=== PATIENT | male | born 1960 | race Caucasian/White ===

== ENCOUNTER 2017-08-11 08:03 | Day surgery (SDC) | payer BC ==
[~2017-08-11 08:03] MED LIST: Acetaminophen TAB* 325 MG PO PRN; Buffered Lidocaine 0.9% SYRIN* 5 ML/SYR SYRINGE INTRADERM ONE
[2017-08-11] MEDS ORDERED: Midazolam* 1 MG/ML 5 ML VIAL (5 MG) ONE (08:17)
[2017-08-11] MEDS ORDERED: fentaNYL* 50 MCG/ML 2 ML VIAL (100 MCG VIAL) ONE (08:17)
--- NOTE | 2017-08-11 11:30 | OP ---
DATE OF OPERATION/DATE OF DICTATION: 08/11/2017 - [facility] DATE OF : 1960. SURGEON: Dr. Jean-Claude Guadarrama. FIELD SERVICES DIRECTOR: None. ANESTHESIOLOGIST: Gadiel Cameron MD ANESTHESIA: Topical with intravenous sedation. PRE-OP DIAGNOSIS: Cataract, left eye. POST-OP DIAGNOSIS: Cataract, left eye. OPERATIVE PROCEDURE: Phacoemulsification and cataract extraction with posterior chamber intraocular lens implant, left eye. COMPLICATIONS: None. BLOOD LOSS: None. DESCRIPTION OF PROCEDURE: The patient was brought to the operating room and received a small amount of intravenous sedation. A drop of Tetracaine was placed in his left eye. He was prepped and draped in the usual sterile fashion for ophthalmic surgery and attention was directed to the left eye where a speculum was placed. A paracentesis was created at the 5 o'clock position and 0.1 cc of 1 percent preservative-free Lidocaine was injected into the anterior chamber followed by DisCoVisc. The eye was digitally stabilized while a 2.75 mm keratome was used to create a triplanar clear corneal incision at the 3 o'clock position. A continuous curvilinear capsulorrhexis was created with a cystotome and Utrata forceps. BSS on a cannula was used to hydrodissect the lens from the capsule. Phacoemulsification was performed in a uhatsq-tcu-hiexhkh technique to create four fragments which were removed. Residual cortical material was removed with irrigation and aspiration. DisCoVisc was used to inflate the capsular bag and an AUOOTO 20.0 diopter lens was folded and inserted into the capsular bag. DisCoVisc was removed using irrigation and aspiration. BSS on a cannula was used to hydrate the corneal stroma and seal the wound. At the end of the case the pupil was round and the lens was centered. The eye was of normal pressure and the wound was water tight. The speculum was removed and topical Maxitrol ointment was placed on the surface of the eye. The eye was closed, patched and shielded and the patient was sent to the recovery room in stable condition with post operative instructions and follow-up appointment given. [id number]/CPS #: [id number] MTDD
[2017-08-11 11:57] VITALS: BP 122/75
[2017-08-11] MEDS ORDERED: Neomycin/Polymy/Dex OPHTH.OIN* 3.5 GM ONE (14:13)
[2017-08-11] MEDS ORDERED: Cyclopentolate 1% OPTH.SOL* 2 ML BTL ONE (14:13)
[2017-08-11] MEDS ORDERED: Tetracaine 0.5% OPTH.SOL 4 ML* 1 DROP BTL ONE (14:13)
[2017-08-11] MEDS ORDERED: Lidocaine 1% MPF* 2 ML VIAL ONE (14:13)
[2017-08-11] MEDS ORDERED: Phenylephrine 2.5% OPTH.SOL* 2 ML BTL ONE (14:13)
[2017-08-11] MEDS ORDERED: Tropicamide 1% OPTH.SOL* BTL ONE (14:13)
[2017-08-11] MEDS ORDERED: Buffered Lidocaine 0.9% SYRIN* 5 ML/SYR SYRINGE ONE (14:14)
[2017-08-11] MEDS ORDERED: Ketorolac 0.5% OPHTH (NF) 0.5 % 5 ML BTL ONE (14:15)
== END 2017-08-11 11:31 | disposition home or self-care (01) ==
LOC: OREAST 08:03
PROVIDERS: ATTEND Ophthalmology
DX: E11.36 Type 2 diabetes mellitus with diabetic cataract (principal); H25.12 Age-related nuclear cataract, left eye; H25.042 Posterior subcapsular polar age-related cataract, left eye; I10 Essential (primary) hypertension; F17.210 Nicotine dependence, cigarettes, uncomplicated; E11.42 Type 2 diabetes mellitus with diabetic polyneuropathy; E11.29 Type 2 diabetes mellitus with other diabetic kidney complication; Z79.84 Long term (current) use of oral hypoglycemic drugs
CPT/HCPCS: A9270-GY; J2250; J3010

== ENCOUNTER 2019-02-25 12:18 | Emergency (ER) | payer BC ==
[2019-02-25 12:59] VITALS: BP 153/90
[2019-02-25] MEDS ORDERED: Tetracaine 0.5% OPTH.SOL 4 ML* 1 DROP BTL LEFT EYE ONE (13:17)
[2019-02-25] MEDS ORDERED: Fluorescein Sodium TOPICAL* 1 MG TEST STRIP OPHTHALMIC ONE (13:17)
[2019-02-25] MEDS ORDERED: Erythromycin OPTH OINT* APPLIC OINT LEFT EYE ONE (13:34)
--- NOTE | 2019-02-25 13:44 | UC ---
Eye Complaint HPI - HPI Summary HPI Summary: 58-year-old male presents with complaints of left eye redness, tearing, and foreign body sensation for the past 2 days. States 2 days ago he was using a wire brush to clean rust off of the wheels of his truck. He was wearing safety goggles. States approximately 2 hours later he started noticing some irritation in the eye and foreign body sensation. The next morning he woke up and had some crusting of the eye. He has had redness and tearing of the eye since that time with continued foreign body sensation. Denies fever, chills, URI symptoms, visual disturbances, or photophobia. - History of Current Complaint Chief Complaint: UCEye Stated Complaint: LEFT EYE CONCERN Time Seen by Provider: 02/25/19 13:16 Hx Obtained From: Patient Pain Intensity: 0 Eyes: 1 - Left eye 2 - Linear corneal abrasion - Allergies/Home Medications Allergies/Adverse Reactions: Allergies Allergy/AdvReac Type Severity Reaction Status Date / Time No Known Allergies Allergy Verified 02/25/19 13:00 Home Medications: Home Medications Pioglitazone TAB* [Actos TAB*] 15 mg PO DAILY 02/25/19 [History Confirmed ] PMH/Surg Hx/FS Hx/Imm Hx Previously Healthy: Yes Endocrine History: Diabetes, Dyslipidemia Cardiovascular History: Hypertension - Surgical History Surgical History: None - Family History Known Family History: Positive: Non-Contributory - Social History Occupation: Employed Full-time Lives: With Family Alcohol Use: Occasionally Substance Use Type: Marijuana Substance Use Comment - Amount & Last Used: medical marijuana tincture- vapes Smoking Status (MU): Light Every Day Tobacco Smoker Type: Cigarettes Amount Used/How Often: 1/2 ppd Length of Time of Smoking/Using Tobacco: since age 13 Have You Smoked in the Last Year: Yes Review of Systems All Other Systems Reviewed And Are Negative: Yes Constitutional: Negative: Fever, Chills Eyes: Positive: Drainage - Tearing, Eye Redness. Negative: Blurred Vision, Diplopia, Photophobia ENT: Positive: Negative Respiratory: Positive: Negative Cardiovascular: Positive: Negative Gastrointestinal: Positive: Negative Genitourinary: Positive: Negative Musculoskeletal: Positive: Negative Neurological: Positive: Negative Is Patient Immunocompromised?: No Physical Exam - Summary Physical Exam Summary: GENERAL APPEARANCE: Well developed, well nourished, alert and cooperative, and appears to be in no acute distress. EYES: Right eye normal. Left eye conjuctival erythema with tearing. PERRL, EOM intact. Vision is grossly intact. Visual acuity reviewed. Tetracaine and fluorosceine instilled into left eye and the eye was examined under magnification with a Wood's lamp. A linear abrasion was noted (see diagram). No foreign body or penetrating injury noted. Upper and lower lids were everted during exam. EARS: External auditory canals and tympanic membranes clear, hearing grossly intact. NOSE: No nasal discharge. THROAT: Pharynx normal No tonsilar inflammation, swelling, exudate, or lesions. Uvula midline. Oral cavity normal. Teeth and gingiva in good general condition. NECK: Neck supple, non-tender without lymphadenopathy. CARDIAC: Normal S1 and S2. No S3, S4 or murmurs. Rhythm is regular. There is no peripheral edema, cyanosis or pallor. Extremities are warm and well perfused. Capillary refill is less than 2 seconds. Peripheral pulses intact. LUNGS: Clear to auscultation without rales, rhonchi, wheezing or diminished breath sounds. ABDOMEN: Positive bowel sounds. Soft, nondistended, nontender. No guarding or rebound. No masses or hepatosplenomegally. MUSKULOSKELETAL: ROM intact to all extremities. No joint erythema or tenderness. Normal muscular development. Normal gait. SKIN: Skin normal color, texture and turgor with no lesions or eruptions. Triage Information Reviewed: Yes Vital Signs: Initial Vital Signs Temp 98.5 F 02/25/19 12:51 Pulse 70 02/25/19 12:51 Resp 16 02/25/19 12:51 BP 153/90 02/25/19 12:51 Pulse Ox 97 02/25/19 12:51 Vital Signs Reviewed: Yes Eye Complaint Course/Dx - Course Course Of Treatment: 58-year-old male presents with complaints of left eye redness, tearing, and foreign body sensation for the past 2 days. States 2 days ago he was using a wire brush to clean rust off of the wheels of his truck. He was wearing safety goggles. States approximately 2 hours later he started noticing some irritation in the eye and foreign body sensation. The next morning he woke up and had some crusting of the eye. He has had redness and tearing of the eye since that time with continued foreign body sensation. Denies fever, chills, URI symptoms, visual disturbances, or photophobia. Afebrile. Hypertensive otherwise vital signs stable. Patient had left eye conjunctival erythema with tearing and otherwise unremarkable exam. Tetracaine enforcing were instilled into the eye and the eye was examined under magnification with a Cisneros lamp. He was noted to have a linear corneal abrasion. No foreign body or penetrating injury was noted. Patient was given erythromycin ophthalmic ointment to use 4 times a day for the next 5 days. He is an established patient with Dr. Guadarrama and is to follow-up with him in 2-3 days if no improvement in symptoms. Anticipatory guidance and warning symptoms were reviewed with the patient. Verbalizes understanding and agrees to plan of care. - Differential Dx/Diagnosis Differential Diagnosis/HQI/PQRI: Conjunctivitis, Corneal Abrasion, Foreign Body , Penetrating Injury Provider Diagnosis: Left corneal abrasion Discharge - Sign-Out/Discharge Documenting (check all that apply): Patient Departure All imaging exams completed and their final reports reviewed: No Studies - Discharge Plan Condition: Stable Disposition: HOME Patient Education Materials: Corneal Abrasion (ED) Referrals: Steven Lock MD [Primary Care Provider] - Jean-Claude Guadarrama MD [Medical Doctor] - If Needed Additional Instructions: Your exam showed a small corneal abrasion (scratch of the eye) to the left eye. These usually heal on their own over a couple of days. Use erythromycin ointment in the affected eye 4 times a day for 5 days to help prevent infection. Take acetaminophen (Tylenol) or ibuprofen (Advil, Motrin) according to directions as needed for pain. Follow up with Dr. Guadarrama in 2-3 days if symptoms do not improve. Seek immediate medical attention in the emergency room if you have visual disturbances, loss of vision, severe pain in the eye despite using pain medication, or any worsening of symptoms. - Billing Disposition and Condition Condition: STABLE Disposition: Home - Attestation Statements Provider Attestation: Per institutional requirements, I have reviewed the chart, however, I was not consulted specifically or made aware of this patient by the midlevel provider. I did not personally evaluate, interact with , or disposition this patient.
== END 2019-02-25 13:55 | disposition home or self-care (01) ==
LOC: UCCORT 12:18
DX: S05.02XA Injury of conjunctiva and corneal abrasion without foreign body, left eye, initial encounter (principal); X58.XXXA Exposure to other specified factors, initial encounter; E11.9 Type 2 diabetes mellitus without complications; I10 Essential (primary) hypertension; F17.210 Nicotine dependence, cigarettes, uncomplicated; Z79.84 Long term (current) use of oral hypoglycemic drugs
CPT/HCPCS: 99213; A9270-GY; G0463